=== PATIENT | male | born 2000 | race Caucasian/White ===

== ENCOUNTER 2019-03-01 22:29 | Emergency (ER) | payer SELFPAY ==
[~2019-03-01] VITALS: Ht 175.2 cm; Wt 81.6 kg
== END 2019-03-01 23:05 | disposition home or self-care (01) ==
LOC: ED 22:29
DX: L27.1 Localized skin eruption due to drugs and medicaments taken internally (principal); T36.8X5A Adverse effect of other systemic antibiotics, initial encounter; L50.9 Urticaria, unspecified; J45.909 Unspecified asthma, uncomplicated; Y92.89 Other specified places as the place of occurrence of the external cause